=== PATIENT | female | born 1935 | race Two or more races ===

== ENCOUNTER 2022-03-24 06:40 | Emergency (ER) | payer OTHER ==
[~2022-03-24] VITALS: Ht 154.9 cm; Wt 54.4 kg
--- NOTE | 2022-03-24 06:58 | NUR ---
PATIENT TALISHARA 89 FROM HOME FOR C/O NAUSEA FOR MORE THAN 2 WEEKS. PATIENT A/O X 4, RR EVEN AND UNLABORED NO SOB NOTED. PATIENT TAKEN TO ER BED 04, PATIENT CONNECTED TO [facility] [employer] [facility] AND [facility]. WILL CONTINUE TO MONITOR.
--- NOTE | 2022-03-24 07:00 | NUR ---
COVID AND FLU SWAB COLLECTED
--- NOTE | 2022-03-24 07:04 | NUR ---
IV LINE ESTABLISHED, [id number]
--- NOTE | 2022-03-24 07:05 | NUR ---
BLOOD COLLECTED AND SENT TO LAB
--- NOTE | 2022-03-24 07:05 | NUR ---
ER TACH AT BEDSIDE FOR EKG
[2022-03-24 07:34] LABS: BASOPHILS % (AUTO) 0.3 % (0.0-2.0); EOSINOPHILS % (AUTO) 0.2 % (0.0-6.0); HEMATOCRIT 49 % (33-45); LYMPHOCYTES # (AUTO) 1.6 K/uL (0.8-4.8); MEAN CORPUSCULAR HGB CONC 33 g/dl (31.0-36.0); MEAN CORPUSCULAR VOLUME 88 fL (82-100); MONOCYTES # (AUTO) 0.9 K/uL (0.1-1.30); MONOCYTES % (AUTO) 8.8 % (2.0-12.0); NEUTROPHILS # (AUTO) 7.9 K/uL (1.8-8.9); NEUTROPHILS % (AUTO) 75.7 % (43.0-81.0); PLATELET COUNT (AUTO) 229 K/uL (150-450); RED BLOOD CELL COUNT(AUTO) 5.49 MIL/uL (4.0-5.2); WHITE BLOOD COUNT (AUTO) 10.5 K/uL (4.3-11.0)
--- NOTE | 2022-03-24 07:36 | NUR ---
MICHELLE [facility] [phone]
[2022-03-24 07:48] LABS: CARBON DIOXIDE 21 mmol/L (21-32); CHLORIDE 95 mmol/L (98-107); CREATININE 0.9 mg/dL (0.6-1.3); GLUCOSE 252 mg/dL (74-106); POTASSIUM 3.8 mmol/L (3.5-5.1); SODIUM SERUM 131 mmol/L (136-145); UREA NITROGEN, BLOOD 16 mg/dL (7-18)
[2022-03-24] MEDS ORDERED: hydrALAZINE HCL IV 20 MG VIAL ONE (07:58)
[2022-03-24] MEDS ORDERED: INSULIN REGULAR, HUMAN 100 UNIT/ML 10 ML VIAL SQ ONE (08:00)
[2022-03-24] MEDS ORDERED: hydrALAZINE HCL IV 20 MG VIAL IV ONE (08:00)
[2022-03-24] MEDS ORDERED: IV NS 0.9% 1,000 ML IV ONE (08:00)
[2022-03-24 08:01] LABS: ALANINE AMINOTRANSFERASE 24 U/L (12-78); ALBUMIN 3.8 g/dL (3.4-5.0); ALKALINE PHOSPHATASE 57 U/L (46-116); ASPARTATE AMINOTRANSFERASE 26 U/L (15-37); BILIRUBIN,DIRECT 0.2 mg/dL (0.0-0.2); BILIRUBIN,TOTAL 0.8 mg/dL (0.2-1.0); TOTAL PROTEIN, SERUM 7.9 g/dL (6.4-8.2)
--- NOTE | 2022-03-24 08:16 | NUR ---
CALLED [facility] [phone] PER RENAY RODRIGUEZ WILL CALL US BACK.
--- NOTE | 2022-03-24 09:18 | NUR ---
DR DEY AT BEDSIDE W/ PT AND FAMILY
[2022-03-24] MEDS ORDERED: ONDANSETRON HCL/PF 4 MG/2 ML VIAL ONE (09:40)
--- NOTE | 2022-03-24 09:47 | NUR ---
GOING TO [facility] UNDER DR. HARRIS , GIVE REPORT TO NUMBER [phone], [facility] ETA [phone]
[2022-03-24] MEDS ORDERED: ONDANSETRON HCL/PF 4 MG/2 ML VIAL IV ONE (10:00)
--- NOTE | 2022-03-24 10:01 | NUR ---
REPORT GIVEN TO BRODY WEISS
[2022-03-24 10:07] LABS: BILIRUBIN,URINE NEGATIVE (NEGATIVE); COLOR,URINE YELLOW (YELLOW); LEUKOCYTE ESTERASE ,URINE NEGATIVE (NEGATIVE); NITRITE, URINE NEGATIVE (NEGATIVE); PROTEIN,URINE 2+ mg/dl (NEGATIVE); UGLUCOSE 2+ mg/dL (NEGATIVE); UROBILINOGEN,URINE 0.2 EU/dL (0.2)
[2022-03-24 10:11] LABS: BACTERIA,URINE None seen /HPF (None Seen); SQUAMOUS EPITHELIAL CELL,UR Few /HPF (None Seen)
--- NOTE | 2022-03-24 11:15 | NUR ---
EMT AT BEDSIDE TO PICKUP PT. BEDSIDE ENDORSEMENT GIVEN.
--- NOTE | 2022-03-24 11:55 | NUR ---
patient picked up by ambulance to be transfer to [facility] . all documents provided . patient is stable
[2022-03-24 12:01] VITALS: BP 135/73
== END 2022-03-24 12:02 | disposition short-term general hospital (02) ==
LOC: ER 06:42 → EDBD 06:42 → ER 12:02
DX: R53.1 Weakness (principal); I10 Essential (primary) hypertension; Z20.822 Contact with and (suspected) exposure to COVID-19; E11.65 Type 2 diabetes mellitus with hyperglycemia; E87.1 Hypo-osmolality and hyponatremia; D75.1 Secondary polycythemia; R94.31 Abnormal electrocardiogram [ECG] [EKG]
CPT/HCPCS: 99285; 96374; 71045; 96361; 96375; 87426; 93005; 87804; 85025; 80048; 80076; 83735; 81001; 36415; 84484 ×2; 83880; 96372; J0360; J2405; J7030; C9803